=== PATIENT | female | born 1990 | race Caucasian/White ===

== ENCOUNTER 2016-12-13 17:07 | Emergency (ER) | payer OTHER ==
--- NOTE | 2016-12-13 19:42 | C.PDOC ---
History Of Present Illness 26 y/o female presents to ED with c/o occasional epigastric "shooting" pains during the day, intermittently for 5 days. She states pain is not associated with chest pain or shortness of breath. Pt states she is currently observing Ramadan, over-eating and going to bed soon after on a regular basis. Patient notes hx of GERD and states she cannot take medications during the day due to holiday observance. Denies fever, chills, nausea, vomiting, diarrhea, urinary symptoms, or other complaints. Time Seen by Provider: 12/13/16 19:32 Chief Complaint (Nursing): Chest Pain History Per: Patient History/Exam Limitations: no limitations Onset/Duration Of Symptoms: Days, Intermittent Episodes Current Symptoms Are (Timing): Still Present Quality: "Pain" Associated Symptoms: denies: Nausea Recent travel outside of the [place]: No Past Medical History Reviewed: Historical Data, Nursing Documentation, Vital Signs Vital Signs: Last Vital Signs Temp Pulse 86 12/13/16 19:53 Resp 16 12/13/16 19:53 BP 110/76 12/13/16 19:53 Pulse Ox 100 12/13/16 19:53 - Medical History PMH: GERD Family History: States: Unknown Family Hx - Social History Hx Alcohol Use: No Hx Substance Use: No - Immunization History Hx Influenza Vaccination: Yes Review Of Systems Except As Marked, All Systems Reviewed And Found Negative. Constitutional: Negative for: Fever, Chills Cardiovascular: Negative for: Chest Pain Respiratory: Negative for: Cough, Shortness of Breath Gastrointestinal: Positive for: Abdominal Pain. Negative for: Nausea, Vomiting , Diarrhea Genitourinary: Negative for: Dysuria, Frequency, Hematuria Skin: Negative for: Rash Neurological: Negative for: Headache, Dizziness Physical Exam - Physical Exam Appears: Non-toxic, No Acute Distress Skin: Normal Color, Warm, Dry, No Rash Head: Atraumatic, Normacephalic Oral Mucosa: Moist Chest: Symmetrical Cardiovascular: Rhythm Regular, No Murmur Respiratory: Normal Breath Sounds, No Rales, No Rhonchi, No Wheezing Gastrointestinal/Abdominal: Soft, No Tenderness, No Distention, No Guarding, No Rebound Back: Normal Inspection, No CVA Tenderness, No Paraspinal Tenderness Extremity: Normal ROM, Capillary Refill (< 2 sec.) Neurological/Psych: Oriented x3, Normal Speech, Normal Cognition ED Course And Treatment ECG: Interpreted By Me ECG Rhythm: Sinus Rhythm ECG Interpretation: Normal O2 Sat by Pulse Oximetry: 100 (RA) Pulse Ox Interpretation: Normal Progress Note: Treated with Pepcid. Patient improved on re-eval. Advised follow up with PMD. Medical Decision Making Medical Decision Making: prob GERD Ramadan, overeating in early AM and late night then sleep immediately per tradition No s/s of cardiac etiology,no posit/resp component. Highest likelihood of GERD pt defers w/u with informed consent. Exam with Eric Aguiar Disposition Doctor Will See Patient In The: Office Counseled Patient/Family Regarding: Studies Performed, Diagnosis - Disposition Referrals: Lobo Portillo DO [Staff Provider] - Disposition: HOME/ ROUTINE Disposition Time: 19:42 Condition: GOOD Additional Instructions: pepcid 20 mg @ night, every night for 1 month Maalox/Mylanta equivalent 4-5x/day as needed Follow-up with Dr. Portillo- refer to Gastroenterology as needed. Instructions: Gastroesophageal Reflux Disease (ED) - Clinical Impression Clinical Impression: Chest discomfort - Scribe Statement The provider has reviewed the documentation as recorded by the Efrain Alfaro Provider Attestation: All medical record entries made by the Yahairaibberkley were at my direction and personally dictated by me. I have reviewed the chart and agree that the record accurately reflects my personal performance of the history, physical exam, medical decision making, and the department course for this patient. I have also personally directed, reviewed, and agree with the discharge instructions and disposition.
[2016-12-13 19:54] VITALS: BP 110/76; PULSE 86; RESP 16; O2SAT 100
--- NOTE | 2016-12-16 00:28 | CARD ---
APPROVED REPORT EKG Measurement Heart [id number] <Conclusion> Normal sinus rhythm Normal ECG
== END 2016-12-13 19:53 | disposition home or self-care (01) ==
LOC: C.ER 17:07
DX: R07.89 Other chest pain (principal)